=== PATIENT | female | born 1990 | race Caucasian/White ===

== ENCOUNTER 2023-03-13 12:51 | Emergency (ER) | payer MEDICAID, SELFPAY ==
[2023-03-13 13:51] VITALS: BMI 20.7
[2023-03-13 13:55] VITALS: BP 136/60; PULSE 91; RESP 18; TEMP 36.9; O2SAT 98
[2023-03-13 14:48] LABS: Basophils # 0.1 10^3/uL (0.0-0.1); Basophils % 0.6 %; Eosinophils % 0.5 %; Lymphocytes # 2.1 10^3/uL (0.8-4.8); Lymphocytes % 24.3 %; Mean Corpuscular HGB Conc 28.7 g/dL (30-55); Mean Corpuscular Hemoglobin 18.7 pg (27-33); Mean Corpuscular Volume 65.1 fl (85-98); Mean Platelet Volume 10.1 fL (7.4-10.4); Monocytes # 0.5 10^3/uL (0.2-0.9); Monocytes % 5.3 %; Neutrophils # 6.08 10^3/uL (1.8-7.7); Neutrophils % 69.1 %; Nucleated Red Blood Cells % 0 %; Platelet Count 432 10^3/cmm (157-399); Red Blood Count 4.76 10^6/uL (3.85-5.65); Red Cell Distribution Width 19.2 % (12.1-15.1)
--- NOTE | 2023-03-13 15:14 | W.ED.FEMALGU ---
HPI - Female Genitourinary General: Chief complaint: Urogenital-Female Stated complaint: right side possibly 6 weeks preg Time Seen by Provider: 03/13/23 15:11 Source: patient Mode of arrival: ambulatory History of Present Illness: 32-year-old female presents emergency room complaining of vaginal bleeding and pelvic discomfort. Complains of pelvic pain on the right. She has a history of previous C-sections. She states several days ago she had positive home test. No fevers or chills no dysuria urgency or frequency. MD elicited complaint: vaginal bleeding and pelvic pain Onset (ago): day(s) (2) Severity: mild Quality of pain: cramping Consistency: intermittent Vaginal bleeding: scant Exacerbating factors: none Relieving factors: none Associated symptoms: Deny abdominal pain, short of breath, fevers/chills, headache(s), nausea, rash, seizures, syncope, vaginal bleeding, vaginal discharge or weakness Date of Last Menstrual Period: 02/04/23 Review of Systems Const: Denies: fever(s), chills, body aches, change in appetite, fatigue or malaise ENMT: Denies: throat pain, ear or mastoid pain, nasal discharge or nasal congestion Card: Denies: syncope Resp: Denies: dyspnea, productive cough or non-productive cough GI: Denies: abdominal pain or nausea : Denies: vaginal discharge Skin/Breast: Denies: rash or pruritus Neuro: Denies: headache(s) [facility] ED Female Reproductive History: Date of last menstrual period: 02/04/23 Physical Exam Const: GENERAL APPEARANCE: cooperative and comfortable ORIENTATION/CONSCIOUSNESS: Yes awake, Yes oriented to person, Yes oriented to place and Yes oriented to time HENMT: COMMON NORMALS: normocephalic, atraumatic and hearing grossly normal bilaterally HEAD & SCALP: normocephalic and atraumatic Resp: COMMON NORMALS: normal respiratory effort, No retractions, No use of accessory muscles and clear to auscultation bilaterally AUSCULTATION: clear to auscultation bilaterally Cardio: COMMON NORMALS: regular rate, regular rhythm and No murmurs present (Cardio) RATE: regular rate RHYTHM: regular rhythm GI: COMMON NORMALS: Soft to palpation and No hepatosplenomegaly present AUSCULTATION: Yes normoactive bowel sounds PALPATION: Yes Soft to palpation, No Tenderness to palpation present (GI), No Guarding due to palpation present (GI) and Yes No hepatosplenomegaly present : SPECULUM EXAM - VAGINA: No vaginal bleeding OB/EXTERNAL & SPECULUM: No vaginal bleeding Extremity: COMMON NORMALS: normal to inspection, capillary refill normal, no clubbing, cyanosis or edema, no calf tenderness and no pedal edema Neuro: SENSORIUM/ORIENTATION: Yes oriented to person, Yes oriented to place and Yes oriented to time Skin: COMMON NORMALS: no rashes or lesions noted GENERAL SKIN EXAM: no rashes or lesions noted Course Vital Signs: Vital signs: Vital Signs Temperature 98.4 F 03/13/23 13:55 Pulse Rate 83 03/13/23 15:25 Respiratory Rate 18 03/13/23 13:55 Blood Pressure 139/76 03/13/23 15:25 Pulse Oximetry 100 03/13/23 15:25 Oxygen Delivery Me thod Room Air 03/13/23 13:55 MDM - Female Medical Decision Making Labs and imaging reviewed. Beta-hCG is nearly 11,000 but unable to identify a pole or cardiac activity. There is a gestational sac and a yolk sac but no pole. No ectopic identified there is a corpus luteum cyst on the left ovary. Her discomfort is on the right. Her beta-hCG is disproportionately high for what we are seeing on the ultrasound but there is no evidence of ectopic or molar and there is evidence of intrauterine albeit much earlier than anticipated. Discussed these findings with Dr. Ramírez who is on-call. He recommends repeat beta-hCG in 72 hours. We will have the patient return on 03 16 in the area to the emergency room. Because it is a holiday there will be no office is open will have a repeat repeat beta-hCG here in the emergency room. I will be working at shift asked her to arrive sometime between 7 and 9 AM. Repeat beta-hCG and trend referral to OB as well. Medical Records I reviewed the patient's medical records. Lab Data I reviewed the patient's lab results. 03/13/23 14:24 03/13/23 14:24 Radiology Impressions Ultrasound 03/13/23 15:59 IMPRESSION: There is an intrauterine gestational sac with a yolk sac but no embryo or heartbeat detected at this time. Consider repeat ultrasound in 7-10 days to assess viability if clinically warranted. Laboratory Results WBC 8.80 10^3/uL (3.29-11.43) 03/13/23 14:24 RBC 4.76 10^6/uL (3.85-5.65) 03/13/23 14:24 Hgb 8.90 g/dL (11.27-16.99) L 03/13/23 14:24 Hct 31.0 % (36-47) L 03/13/23 14:24 MCV 65.1 fl (85-98) L 03/13/23 14:24 MCH 18.7 pg (27-33) L 03/13/23 14:24 MCHC 28.7 g/dL (30-55) L 03/13/23 14:24 RDW 19.2 % (12.1-15.1) H 03/13/23 14:24 Plt Count 432 10^3/cmm (157-399) H 03/13/23 14:24 MPV 10.1 fL (7.4-10.4) 03/13/23 14:24 Neut % (Auto) 69.1 % 03/13/23 14:24 Lymph % (Auto) 24.3 % 03/13/23 14:24 [place] % (Auto) 5.3 % 03/13/23 14:24 Eos % (Auto) 0.5 % 03/13/23 14:24 Baso % (Auto) 0.6 % 03/13/23 14:24 Neut # (Auto) 6.08 10^3/uL (1.8-7.7) 03/13/23 14:24 Lymph # (Auto) 2.1 10^3/uL (0.8-4.8) 03/13/23 14:24 [place] # (Auto) 0.5 10^3/uL (0.2-0.9) 03/13/23 14:24 Eos # (Auto) 0.0 10^3/uL (0.0-0.8) 03/13/23 14:24 Baso # (Auto) 0.1 10^3/uL (0.0-0.1) 03/13/23 14:24 Nucleated RBC % (auto) 0 % 03/13/23 14:24 Nucleated RBCs # 0.0 /100WBC 03/13/23 14:24 Sodium 136 mmol/L (136-145) 03/13/23 14:24 Potassium 3.9 mmol/L (3.5-5.1) 03/13/23 14:24 Chloride 102 mmol/L (98-107) 03/13/23 14:24 Carbon Dioxide 23 mmol/L (22-29) 03/13/23 14:24 Anion Gap 14.9 (5-19) 03/13/23 14:24 BUN 10 mg/dL (6-20) 03/13/23 14:24 Creatinine 0.6 mg/dL (0.5-0.9) 03/13/23 14:24 GFR Calculation 117.4 mL/min (90-130) 03/13/23 14:24 Glucose 108 mg/dL (65-115) 03/13/23 14:24 Calculated Osmolality 282 mOsm/kg (285-295) L 03/13/23 14:24 Calcium 9.2 mg/dL (8.5-10.5) 03/13/23 14:24 Total Bilirubin 0.3 mg/dL (0.15-1.2) 03/13/23 14:24 AST 15 U/L (0-32) 03/13/23 14:24 ALT 7 U/L (0-33) 03/13/23 14:24 Alkaline Phosphatase 58 U/L (35-105) 03/13/23 14:24 Total Protein 8.2 g/dL (6.6-8.7) 03/13/23 14:24 Albumin 4.6 g/dL (3.5-5.2) 03/13/23 14:24 Globulin 3.6 g/dL (1.3-4.6) 03/13/23 14:24 Ser , Semi-Qnt 70153.00 mIU/mL 03/13/23 14:24 Urine Color Yellow (Yellow) 03/13/23 15:50 Urine Appearance Clear (CLEAR) 03/13/23 15:50 Urine pH 5 (5-7) 03/13/23 15:50 Ur Specific [place] 1.015 (1.005-1.030) 03/13/23 15:50 Urine Protein Neg (Negative) 03/13/23 15:50 Urine Glucose (UA) Norm (Normal) 03/13/23 15:50 Urine Ketones Negative (Negative) 03/13/23 15:50 Urine Blood Neg (Negative) 03/13/23 15:50 Urine Nitrate Negative (Negative) 03/13/23 15:50 Urine Bilirubin Neg (Negative) 03/13/23 15:50 Urine Urobilinogen Norm mg/dL (Negative) 03/13/23 15:50 Ur Leukocyte Esterase Negative (Negative) 03/13/23 15:50 Discharge Plan Discharge Patient Disposition: Home Clinical Impression: Miscarriage, threatened, early Condition: Stable Prescriptions: No Action Tylenol Ex Str Rapid Release 500 mg Tablet 500 mg PO Q6H PRN (Reason: Pain) Discharge Orders: Discharge ED (Routine); Ordered 03/13/23 Ordered By: Charles Flowers Discharge Diet: Usual diet Discharge Activity: Increase activity as tolerated Patient Instructions: Opioid Safety, Pain Management Activity Restrictions/Additional Instructions: Recheck a beta-hCG in the emergency room Thursday. Coding Level of Care Code ED Pulmonology Technician for Jaya Arzate
[2023-03-13 15:25] VITALS: BP 139/76; PULSE 83; O2SAT 100
[2023-03-13 15:33] LABS: Alanine Aminotransferase 7 U/L (0-33); Albumin Level 4.6 g/dL (3.5-5.2); Alkaline Phosphatase 58 U/L (35-105); Anion Gap 14.9 (5-19); Aspartate Amino Transferase 15 U/L (0-32); Blood Urea Nitrogen 10 mg/dL (6-20); Calcium 9.2 mg/dL (8.5-10.5); Carbon Dioxide 23 mmol/L (22-29); Chloride 102 mmol/L (98-107); Globulin 3.6 g/dL (1.3-4.6); Glomerular Filtration Rate 117.4 mL/min (90-130); Glucose 108 mg/dL (65-115); Osmolality Calculated 282 mOsm/kg (285-295); Potassium 3.9 mmol/L (3.5-5.1); Sodium 136 mmol/L (136-145); Total Bilirubin 0.3 mg/dL (0.15-1.2); Total Protein 8.2 g/dL (6.6-8.7)
--- NOTE | 2023-03-13 15:59 | USR_ITS ---
PROCEDURE INFORMATION: Exam: US , Transvaginal Exam date and time: 03/13/2023 5:01 PM Clinical indication: complicated by abdominal or pelvic pain; Right lower quadrant; First trimester (<14 weeks 0 days); Gestational age or lmp: 5w6d; ; Prior surgery; Surgery date: 6+ months; Surgery type: History of c sections; Additional info: Confirm iup TECHNIQUE: Imaging protocol: Real-time transvaginal obstetrical ultrasound of the maternal pelvis with image documentation. Transvaginal imaging was used for better evaluation of the fetus, adnexa, and/or cervix. COMPARISON: No relevant prior studies available. FINDINGS: Gestation: There is a single intrauterine gestational sac. A yolk sac is visualized but no embryo or heartbeat is detected at this time. Gestational age based on mean sac diameter measurement is 5 weeks 6 days. Uterus and ovaries are unremarkable. There is a probable left ovarian corpus luteum cyst. Small amount of fluid is seen in the cervix. US/US OB <= 14 weeks fetus [id number] IMPRESSION: There is an intrauterine gestational sac with a yolk sac but no embryo or heartbeat detected at this time. Consider repeat ultrasound in 7-10 days to assess viability if clinically warranted.
[2023-03-13 16:05] LABS: Add Urine Microscopic? NO; Charge for UA Resulting for Rev
[2023-03-13 16:16] LABS: Bilirubin Urine Neg (Negative); Blood Urine Neg (Negative); Glucose Urine UA Norm (Normal); Ketones Urine Negative (Negative); Leukocyte Esterase Urine Negative (Negative); Nitrate Urine Negative (Negative); Protein Urine Neg (Negative); Specific Gravity, Urine 1.015 (1.005-1.030); Urine Appearance Clear (CLEAR); Urine Color Yellow (Yellow); Urobilinogen Urine Norm (Negative); pH Urine 5 (5-7)
--- NOTE | 2023-03-16 07:37 | DCPLANNER ---
Addendum entered by Maricruz Ochoa 03/17/23 14:22: Patient has a follow up appointment scheduled for Thursday, March 23, 2023 at 8:45 at [facility]. Original Note: manager global had message to schedule a follow up appointment for patient with DELIVERY DRIVER/SUPERVISOR. manager global sent patients information to the front office staff at [facility]. Patients information will be printed and reviewed. Clinic will call patient with appointment information.
== END 2023-03-13 18:34 | disposition home or self-care (01) ==
PROVIDERS: Emergency Medicine; Emergency Provider Family Medicine
DX: O20.0 Threatened abortion (principal); Z3A.01 Less than 8 weeks gestation of pregnancy
CPT/HCPCS: 36415; 76801; 80053; 81003; 84702; 85025; 99284

== ENCOUNTER 2023-03-16 09:08 | Emergency (ER) | payer MEDICAID, SELFPAY ==
[2023-03-16 09:23] VITALS: BP 115/77; PULSE 97; RESP 18; TEMP 36.8; O2SAT 97
--- NOTE | 2023-03-16 12:57 | W.ED.RECABL ---
HPI - Recheck/Abnormal Lab/Rx General: Chief Complaint: Recheck/Abnormal Lab/Rx Stated Complaint: abn labs/recheck Time Seen by Provider: 03/16/23 09:10 Source: patient Mode of arrival: ambulatory History of Present Illness: 32-year-old female returns emergency room I seen her last week she had a beta-hCG that was 10,000 but we are not able to identify a pole there are no masses in the uterus nothing that resemble molar no ectopic she is not having any further pain or and she is not having any bleeding. She returns today for repeat beta-hCG. At the time she was here we reviewed the case with on-call gynecology they recommended a 3-day repeat on her beta-hCG. MD complaint: abnormal lab Review of Systems : Denies: dysuria, urinary frequency, urinary urgency, vaginal bleeding or pelvic pain Physical Exam Const: COMMON NORMALS: no acute distress GENERAL APPEARANCE: cooperative and comfortable ORIENTATION/CONSCIOUSNESS: Yes awake, Yes oriented to person, Yes oriented to place and Yes oriented to time Neuro: SENSORIUM/ORIENTATION: Yes oriented to person, Yes oriented to place and Yes oriented to time Course Vital Signs: Vital signs: Vital Signs Temperature 98.2 F 03/16/23 09:23 Pulse Rate 97 03/16/23 09:23 Respiratory Rate 18 03/16/23 09:23 Blood Pressure 115/77 03/16/23 09:23 Pulse Oximetry 97 03/16/23 09:23 MDM - Recheck/Abnormal Lab/Rx Medical Decision Making Beta-hCG up to over 15,000 from over 10,000. She is not having any further symptoms follow-up doctor appointment as previously scheduled return if has further problems Medical Records I reviewed the patient's medical records. Lab Data I reviewed the patient's lab results. Laboratory Results Ser , Semi-Qnt 72221.00 mIU/mL 03/16/23 11:53 Discharge Plan Discharge Patient Disposition: Home Clinical Impression: Condition: Stable Prescriptions: No Action acetaminophen [Tylenol Ex Str Rapid Release] 500 mg Tablet 500 mg PO Q6H PRN (Reason: Pain) Discharge Orders: Discharge ED (Routine); Ordered 03/16/23 Ordered By: Charles Flowers Discharge Diet: Usual diet Discharge Activity: Resume usual activity Patient Instructions: Opioid Safety, Pain Management Activity Restrictions/Additional Instructions: Follow-up with Dr. Ramírez as scheduled Coding Level of Care Code ED Discharge Door Operator for Jaya Arzate
[2023-03-16 13:07] VITALS: PULSE 88; RESP 17; O2SAT 99
[2023-03-16 13:09] VITALS: PULSE 88; RESP 17; O2SAT 99
== END 2023-03-16 13:10 | disposition home or self-care (01) ==
PROVIDERS: Emergency Provider Family Medicine
DX: Z32.01 Encounter for pregnancy test, result positive (principal)
CPT/HCPCS: 84702; 99283

== ENCOUNTER → 2023-03-26 13:53 | Outpatient (BNVA) | payer MEDICAID, SELFPAY | PROVIDERS: Visit Provider Nurse Practitioner Women's Health | DX: D64.9 Anemia, unspecified (principal); Z34.90 Encounter for supervision of normal pregnancy, unspecified, unspecified trimester | CPT/HCPCS: 76817; 81025; 82607; 82728; 82746; 83550; 85025 ==

== ENCOUNTER → 2023-03-31 11:51 | Outpatient (BNVA) | payer MEDICAID, SELFPAY | PROVIDERS: Visit Provider Nurse Practitioner Women's Health | DX: Z34.91 Encounter for supervision of normal pregnancy, unspecified, first trimester (principal); Z3A.08 8 weeks gestation of pregnancy | CPT/HCPCS: 76817 ==

== ENCOUNTER → 2023-04-03 14:00 | Outpatient (BNVA) | payer MEDICAID, SELFPAY | PROVIDERS: Visit Provider Nurse Practitioner Women's Health | DX: D64.9 Anemia, unspecified; O09.899 Supervision of other high risk pregnancies, unspecified trimester; Z87.59 Personal history of other complications of pregnancy, childbirth and the puerperium; O34.219 Maternal care for unspecified type scar from previous cesarean delivery | CPT/HCPCS: 80307; 81000; 86592; 86762; 86803; 86850; 86900; 87086; 87340; 87806 ==

== ENCOUNTER 2023-04-04 09:20 | Emergency (ER) | payer MEDICAID, SELFPAY ==
[2023-04-04 09:27] VITALS: BP 132/59; PULSE 92; RESP 18; TEMP 36.4; O2SAT 93; BMI 21.2
--- NOTE | 2023-04-04 10:17 | PC.NURSE ---
unable to get heart tones. pt states mine analyst unsuccessful yesterday also.
--- NOTE | 2023-04-04 10:30 | ED_ITS ---
HPI - General: Chief complaint: Vaginal Bleeding Stated complaint: 8 weeks , vaginal bleeding Time Seen by Provider: 04/04/23 09:22 Source: patient Mode of arrival: ambulatory History of Present Illness: 32-year-old female approximately 8 weeks gestation presents emergency room with complaint of vaginal bleeding and some cramping. She denies dysuria urgency or frequency. Began suddenly this morning. She noticed some bleeding after she had urinated when she wiped. MD Complaint: vaginal bleeding Onset (ago): minute(s) Quality: Cramping Relieving factors: none Exacerbating factors: none Vaginal bleeding: light Associated symptoms: Deny abdominal pain, dyspareunia, dysuria, headache(s), malaise, nausea, rash, seizures, short of breath, syncope, vaginal bleeding, visual changes, vomiting or weakness Review of Systems Const: Denies: fever(s), chills or malaise ENMT: Denies: throat pain, ear or mastoid pain, nasal discharge or nasal congestion Card: Denies: syncope Resp: Denies: dyspnea, productive cough or non-productive cough GI: Denies: abdominal pain, nausea or vomiting : Reports: vaginal bleeding; Denies: dysuria, urinary frequency, urinary urgency or dyspareunia Skin/Breast: Denies: rash or pruritus Neuro: Denies: headache(s) PFSH ED PFSH: Medical History Chronic anemia History of gestational hypertension with her twin in 2010; developed at the end and required medication for 4 months . No pertinent past medical history neghx: htn,dm,thyroid,dvt/pe PCP: none Surgical History History of section 1)-2010-- emergent twins and gest HTN; [place] 2[place]2013- [place] 3[place]2016- repeat; [place] Family History Denies family history of Colon cancer Ovarian cancer Prostate cancer Diabetes Heart disease Hyperlipidemia Breast cancer Hypertension Uterine cancer Thyroid condition Stroke Physical Exam Const: GENERAL APPEARANCE: cooperative and comfortable ALLEN ENTATION/CONSCIOUSNESS: Yes awake, Yes oriented to person, Yes oriented to place and Yes oriented to time HENMT: COMMON NORMALS: normocephalic, atraumatic and hearing grossly normal bilaterally HEAD & SCALP: normocephalic and atraumatic Resp: COMMON NORMALS: normal respiratory effort, No retractions, No use of accessory muscles and clear to auscultation bilaterally AUSCULTATION: clear to auscultation bilaterally Cardio: COMMON NORMALS: regular rate, regular rhythm and No murmurs present (Cardio) RATE: regular rate RHYTHM: regular rhythm GI: COMMON NORMALS: Soft to palpation and No hepatosplenomegaly present AUSCULTATION: Yes normoactive bowel sounds PALPATION: Yes Soft to palpation, No Tenderness to palpation present (GI), No Guarding due to palpation present (GI) and Yes No hepatosplenomegaly present : SPECULUM EXAM - VAGINA: No vaginal bleeding OB/EXTERNAL & SPECULUM: No vaginal bleeding Extremity: COMMON NORMALS: normal to inspection, capillary refill normal, no clubbing, cyanosis or edema, no calf tenderness and no pedal edema Neuro: SENSORIUM/ORIENTATION: Yes oriented to person, Yes oriented to place and Yes oriented to time Skin: COMMON NORMALS: no rashes or lesions noted GENERAL SKIN EXAM: no rashes or lesions noted Course Vital Signs: Vital signs: Vital Signs Temperature 97.6 F 04/04/23 09:27 Pulse Rate 92 04/04/23 09:27 Respiratory Rate 18 04/04/23 09:27 Blood Pressure 132/59 04/04/23 09:27 Pulse Oximetry 93 04/04/23 09:27 Oxygen Delivery Me thod Room Air 04/04/23 09:27 MDM - OB/Uterine Contractions Medical Decision Making Patient has chronic anemia but it is somewhat improved. Beta-hCG has increased appropriately bedside ultrasound could identify some activity was difficult due to the limitations of the ultrasound were used at the bedside. Full ultrasound showed some fluid in the cervical canal with good heart t ones. Suspect this from a subchorionic hemorrhage she does not have a large residual hemorrhage but she does have the fluid in the cervix advised her she is likely have further cramping as well as some bleeding. Follow-up with her CUSTOMS AND BORDER PROTECTION INSPECTOR Medical Records I reviewed the patient's medical records. Lab Data I reviewed the patient's lab results. 04/04/23 10:17 Radiology Impressions Transvaginal US 04/04/23 10:49 IMPRESSION: 1. Live single intrauterine 1st trimester . 2. No identifiable subchorionic hemorrhage. 3. Small amount of fluid in the cervical canal. Laboratory Results WBC 6.40 10^3/uL (3.29-11.43) 04/04/23 10:17 RBC 4.65 10^6/uL (3.85-5.65) 04/04/23 10:17 Hgb 8.90 g/dL (11.27-16.99) L 04/04/23 10:17 Hct 31.2 % (36-47) L 04/04/23 10:17 MCV 67.1 fl (85-98) L 04/04/23 10:17 MCH 19.1 pg (27-33) L 04/04/23 10:17 MCHC 28.5 g/dL (30-55) L 04/04/23 10:17 RDW 20.7 % (12.1-15.1) H 04/04/23 10:17 Plt Count 357 10^3/cmm (157-399) 04/04/23 10:17 MPV 10.1 fL (7.4-10.4) 04/04/23 10:17 Neut % (Auto) 66.7 % 04/04/23 10:17 Lymph % (Auto) 25.5 % 04/04/23 10:17 [place] % (Auto) 6.1 % 04/04/23 10:17 Eos % (Auto) 0.9 % 04/04/23 10:17 Baso % (Auto) 0.6 % 04/04/23 10:17 Neut # (Auto) 4.27 10^3/uL (1.8-7.7) 04/04/23 10:17 Lymph # (Auto) 1.6 10^3/uL (0.8-4.8) 04/04/23 10:17 [place] # (Auto) 0.4 10^3/uL (0.2-0.9) 04/04/23 10:17 Eos # (Auto) 0.1 10^3/uL (0.0-0.8) 04/04/23 10:17 Baso # (Auto) 0.0 10^3/uL (0.0-0.1) 04/04/23 10:17 Nucleated RBC % (auto) 0 % 04/04/23 10:17 Nucleated RBCs # 0.0 /100WBC 04/04/23 10:17 Ser , Semi-Qnt 66886.00 mIU/mL 04/04/23 10:17 All radiology interpretation(s) finalized by discharge Discharge Plan Discharge Patient Disposition: Home Clinical Impression: Subchorionic bleed, Chronic anemia Condition: Stable Prescriptions: No Action ferrous sulfate 325 mg (65 mg iron) tablet 325 mg PO BID Qty: 60 3RF acetaminophen [Tylenol Ex Str Rapid Release] 500 mg Tablet 500 mg PO Q6H PRN (Reason: Pain) 28 mg iron- 800 mcg Tablet 1 tab PO DAILY Discharge Orders: Discharge ED (Routine); Ordered 04/04/23 Ordered By: Charles Flowers Referrals: Samson Ramírez MD [Primary Care Provider] - Discharge Diet: Usual diet Discharge Activity: Limit activity as instructed Patient Instructions: Subchorionic Hemorrhage (ED), Opioid Safety, Pain Management Coding Level of Care Code ED Garbage Man for Jaya Arzate
[2023-04-04 10:32] LABS: Basophils % 0.6 %; Eosinophils # 0.1 10^3/uL (0.0-0.8); Eosinophils % 0.9 %; Hematocrit 31.2 % (36-47); Lymphocytes # 1.6 10^3/uL (0.8-4.8); Lymphocytes % 25.5 %; Mean Corpuscular HGB Conc 28.5 g/dL (30-55); Mean Corpuscular Hemoglobin 19.1 pg (27-33); Mean Corpuscular Volume 67.1 fl (85-98); Mean Platelet Volume 10.1 fL (7.4-10.4); Monocytes # 0.4 10^3/uL (0.2-0.9); Monocytes % 6.1 %; Neutrophils # 4.27 10^3/uL (1.8-7.7); Neutrophils % 66.7 %; Nucleated Red Blood Cells % 0 %; Platelet Count 357 10^3/cmm (157-399); Red Blood Count 4.65 10^6/uL (3.85-5.65); Red Cell Distribution Width 20.7 % (12.1-15.1)
--- NOTE | 2023-04-04 10:49 | USR_ITS ---
PROCEDURE INFORMATION: Exam: US , Transvaginal Exam date and time: 04/04/2023 11:15 AM Age: 32 years old Clinical indication: Lmp or gestational age (in weeks): 8w4d; Antepartum complications; Bleeding; ; Additional info: Establish hrt tones, ? subchorionic LABS AND CLINICAL REPORTS: Last menstrual period start date: 02/03/2023 Gestational age (Established): 8 w 4 d Estimated due date (Established): 11/10/2023 TECHNIQUE: Imaging protocol: Real-time transvaginal obstetrical ultrasound of the maternal pelvis with image documentation. Transvaginal imaging was used for better evaluation of the fetus, adnexa, and/or cervix. COMPARISON: OB transvaginal [id number] 03/31/2023 12:02 PM FINDINGS: Gestation: There is a single live intrauterine . Yolk sac measures 3.4 mm. No identifiable subchorionic hemorrhage. heart rate: 180 bpm BIOMETRY: Gestational age (AUA): 8 w 4 d estimated due date 11/10/2023 [place]-Rump length (CRL): 19.7 mm. EGA (CRL) is 8 w 4 d MATERNAL: Uterus: Unremarkable. Cervix: Cervical length measures 4.39 cm. Small amount of fluid in the cervical canal. Right ovary/adnexa: Unremarkable. Small cyst possibly representing a corpus luteum cyst. US/ OB transvaginal [id number] IMPRESSION: 1. Live single intrauterine 1st trimester . 2. No identifiable subchorionic hemorrhage. 3. Small amount of fluid in the cervical canal.
== END 2023-04-04 12:20 | disposition home or self-care (01) ==
PROVIDERS: Emergency Provider Family Medicine; PCP Obstetrics & Gynecology
DX: O20.8 Other hemorrhage in early pregnancy (principal); O99.011 Anemia complicating pregnancy, first trimester; D64.89 Other specified anemias; Z3A.08 8 weeks gestation of pregnancy
CPT/HCPCS: 36415; 76817; 84702; 85025; 99284

== ENCOUNTER → 2023-04-07 14:05 | Outpatient (BNVA) | payer MEDICAID, SELFPAY | PROVIDERS: PCP Obstetrics & Gynecology; Visit Provider Nurse Practitioner Women's Health | DX: O41.8X90 Other specified disorders of amniotic fluid and membranes, unspecified trimester, not applicable or unspecified; O46.8X9 Other antepartum hemorrhage, unspecified trimester | CPT/HCPCS: 81000; 86850; 87491; 87591; 87624 ==

== ENCOUNTER → 2023-05-04 10:34 | Outpatient (BNVA) | payer MEDICAID, SELFPAY | PROVIDERS: Visit Provider Obstetrics & Gynecology | DX: O09.899 Supervision of other high risk pregnancies, unspecified trimester (principal) | CPT/HCPCS: 81000 ==

== ENCOUNTER → 2023-05-26 10:53 | Outpatient (BNVA) | payer MEDICAID, SELFPAY | PROVIDERS: Visit Provider Nurse Practitioner Women's Health | DX: O09.899 Supervision of other high risk pregnancies, unspecified trimester (principal); Z34.90 Encounter for supervision of normal pregnancy, unspecified, unspecified trimester; D64.9 Anemia, unspecified | CPT/HCPCS: 81000; 82105; 82728; 83550; 85025 ==

== ENCOUNTER → 2023-06-24 14:24 | Outpatient (BNVA) | payer MEDICAID, SELFPAY | PROVIDERS: Visit Provider Nurse Practitioner Women's Health | DX: O09.899 Supervision of other high risk pregnancies, unspecified trimester (principal); Z3A.20 20 weeks gestation of pregnancy | CPT/HCPCS: 76805 ==

== ENCOUNTER → 2023-07-23 12:15 | Outpatient (BNVA) | payer MEDICAID, SELFPAY | PROVIDERS: Visit Provider Nurse Practitioner Women's Health | DX: O09.899 Supervision of other high risk pregnancies, unspecified trimester (principal); Z87.59 Personal history of other complications of pregnancy, childbirth and the puerperium; O34.219 Maternal care for unspecified type scar from previous cesarean delivery; O26.892 Other specified pregnancy related conditions, second trimester; Z67.91 Unspecified blood type, Rh negative; Z30.2 Encounter for sterilization; O36.5920 Maternal care for other known or suspected poor fetal growth, second trimester, not applicable or unspecified; D64.9 Anemia, unspecified; O46.8X2 Other antepartum hemorrhage, second trimester; Z3A.24 24 weeks gestation of pregnancy | CPT/HCPCS: 81000; 82950 ==

== ENCOUNTER → 2023-08-20 10:58 | Outpatient (BNVA) | payer MEDICAID, SELFPAY | PROVIDERS: Visit Provider Obstetrics & Gynecology | DX: O09.899 Supervision of other high risk pregnancies, unspecified trimester (principal); O26.892 Other specified pregnancy related conditions, second trimester; Z67.91 Unspecified blood type, Rh negative; Z3A.28 28 weeks gestation of pregnancy | CPT/HCPCS: 81000; 85025; 86850 ==

== ENCOUNTER → 2023-09-03 11:26 | Outpatient (BNVA) | payer MEDICAID, SELFPAY | PROVIDERS: Visit Provider Obstetrics & Gynecology | DX: Z34.90 Encounter for supervision of normal pregnancy, unspecified, unspecified trimester (principal) | CPT/HCPCS: 76816; 80307; 81000 ==

== ENCOUNTER → 2023-10-01 07:57 | Outpatient (BNVA) | payer MEDICAID, SELFPAY | PROVIDERS: Visit Provider Nurse Practitioner Women's Health | DX: O09.899 Supervision of other high risk pregnancies, unspecified trimester (principal); Z3A.34 34 weeks gestation of pregnancy | CPT/HCPCS: 81000; 85025 ==

== ENCOUNTER → 2023-10-15 07:51 | Outpatient (BNVA) | payer MEDICAID, SELFPAY | PROVIDERS: Visit Provider Obstetrics & Gynecology | DX: O09.899 Supervision of other high risk pregnancies, unspecified trimester (principal); Z3A.36 36 weeks gestation of pregnancy | CPT/HCPCS: 81000; 87081 ==

== ENCOUNTER → 2023-10-22 08:31 | Outpatient (BNVA) | payer MEDICAID, SELFPAY | PROVIDERS: Visit Provider Obstetrics & Gynecology | DX: O09.899 Supervision of other high risk pregnancies, unspecified trimester (principal); O34.219 Maternal care for unspecified type scar from previous cesarean delivery; O26.892 Other specified pregnancy related conditions, second trimester; Z67.91 Unspecified blood type, Rh negative; Z30.2 Encounter for sterilization; O36.5920 Maternal care for other known or suspected poor fetal growth, second trimester, not applicable or unspecified; Z87.59 Personal history of other complications of pregnancy, childbirth and the puerperium; D64.9 Anemia, unspecified; Z3A.37 37 weeks gestation of pregnancy | CPT/HCPCS: 81000 ==

== ENCOUNTER → 2023-10-27 08:02 | Outpatient (BNVA) | payer MEDICAID, SELFPAY | PROVIDERS: Visit Provider Obstetrics & Gynecology | DX: O09.899 Supervision of other high risk pregnancies, unspecified trimester (principal); Z3A.39 39 weeks gestation of pregnancy | CPT/HCPCS: 76816 ==

== ENCOUNTER → 2023-10-29 08:08 | Outpatient (BNVA) | payer MEDICAID, SELFPAY | PROVIDERS: Visit Provider Obstetrics & Gynecology | DX: O09.899 Supervision of other high risk pregnancies, unspecified trimester (principal); O34.219 Maternal care for unspecified type scar from previous cesarean delivery; O26.892 Other specified pregnancy related conditions, second trimester; Z67.91 Unspecified blood type, Rh negative; Z30.2 Encounter for sterilization; O36.5920 Maternal care for other known or suspected poor fetal growth, second trimester, not applicable or unspecified; Z87.59 Personal history of other complications of pregnancy, childbirth and the puerperium; D64.9 Anemia, unspecified; Z3A.38 38 weeks gestation of pregnancy | CPT/HCPCS: 81000 ==

== ENCOUNTER 2023-11-01 22:13 | Inpatient (IN) | payer MEDICAID, SELFPAY ==
[2023-11-01 22:16] VITALS: BP 171/100; PULSE 114
[2023-11-01 22:21] VITALS: BP 169/84; PULSE 98
[2023-11-01 22:31] VITALS: BP 156/81; PULSE 93
[2023-11-01] MEDS: ceFAZolin 2,000 MG in sodium chloride 0.9% (plus) 50 ML 100 MG IV (22:49)
[2023-11-01 23:04] LABS: Basophils % 0.2 %; Eosinophils # 0.1 10^3/uL (0.0-0.8); Eosinophils % 0.5 %; Hematocrit 35.9 % (36-47); Lymphocytes # 2.1 10^3/uL (0.8-4.8); Lymphocytes % 21.3 %; Mean Corpuscular HGB Conc 32.3 g/dL (30-55); Mean Corpuscular Hemoglobin 27.3 pg (27-33); Mean Corpuscular Volume 84.5 fl (85-98); Mean Platelet Volume 10.6 fL (7.4-10.4); Monocytes # 0.9 10^3/uL (0.2-0.9); Monocytes % 8.7 %; Neutrophils % 69.1 %; Nucleated Red Blood Cells % 0 %; Platelet Count 217 10^3/cmm (157-399); Red Blood Count 4.25 10^6/uL (3.85-5.65); Red Cell Distribution Width 15.3 % (12.1-15.1); White Blood Count 9.85 10^3/uL (3.29-11.43)
[2023-11-01 23:16] VITALS: BMI 27.3
[2023-11-01 23:23] LABS: Alanine Aminotransferase 8 U/L (0-33); Albumin Level 3.3 g/dL (3.5-5.2); Alkaline Phosphatase 159 U/L (35-105); Anion Gap 13.8 (5-19); Aspartate Amino Transferase 16 U/L (0-32); Blood Urea Nitrogen 7 mg/dL (6-20); Calcium 8.7 mg/dL (8.5-10.5); Carbon Dioxide 22 mmol/L (22-29); Chloride 104 mmol/L (98-107); Creatinine Clr Calc Pharmacy 152.8241; Globulin 3.1 g/dL (1.3-4.6); Glomerular Filtration Rate 143.9 mL/min (90-130); Glucose 112 mg/dL (65-115); Osmolality Calculated 281 mOsm/kg (285-295); Potassium 3.8 mmol/L (3.5-5.1); Sodium 136 mmol/L (136-145); Total Bilirubin 0.3 mg/dL (0.15-1.2); Total Protein 6.4 g/dL (6.6-8.7); Uric Acid 3.2 mg/dL (2.4-5.7)
--- NOTE | 2023-11-01 23:30 | ANES.PAUD2 ---
Pre-Anesthetic Update Pre-Anesthetic Assessment: Date of Surgery/Procedure: 11/01/23 Proposed Procedure: and b/l tubal Any changes to Pre-Anesthetic Assessment?: No Labs Last 48hrs: Short CBC 11/01/23 Range/Units 22:40 WBC 9.85 (3.29-11.43) 10^ 3/uL Hgb 11.60 (11.27-16.99) g/ dL Hct 35.9 L (36-47) % MCV 84.5 L (85-98) fl Plt Count 217 (157-399) 10^3/c mm Neut % (Auto) 69.1 % Neut # (Auto) 6.80 (1.8-7.7) 10^3/u L BMP 11/01/23 22:40 Sodium 136 Potassium 3.8 Chloride 104 Carbon Dioxide 22 BUN 7 Creatinine 0.5 Glucose 112 Calcium 8.7 Liver Function 11/01/23 Range/Units 22:40 Total Bilirubin 0.3 (0.15-1.2) mg/dL AST 16 (0-32) U/L ALT 8 (0-33) U/L Alkaline Phosphata se 159 H (35-105) U/L Albumin 3.3 L (3.5-5.2) g/dL Blood Bank 11/01/23 22:40 Blood Type A Negative Rho(D) Type Rh negative Vitals: Pulse Rate 93 11/01/23 22:31 Blood Pressure 156/81 11/01/23 22:31 Exam: Pre-Anes Outpt Exam: alert, oriented x 3, clear to auscultation bilaterally and regular rate & rhythm Cardiac Studies: No Data to Display
[2023-11-02] VITALS (85 sets, daily range): BP systolic 116–152; BP diastolic 57–91; PULSE 76–116; RESP 16; TEMP 35.9–36.9; O2SAT 96–100
--- NOTE | 2023-11-02 00:31 | PM.OPHPUD ---
Labor & Delivery H&P Update Date of Procedure: November 02, 2023 Date H&P Performed: 10/29/23 H&P update information: I have reviewed H&P completed within last 30 days, I have examined patient prior to procedure and Changes to prior documentation as noted here (Premature rupture of membranes) Admission Diagnosis:
--- NOTE | 2023-11-02 00:31 | PM.OP ---
Operative Report Date of procedure: November 02, 2023 Pre-op diagnosis: Term Previous delivery Desires sterilization Premature rupture of membranes Post-op diagnosis: same Procedure done: Repeat low-transverse delivery Bilateral salpingectomy Specimens removed/disposition: Placenta Left and right fallopian tubes Surgeon: Samson Ramírez MD Estimated blood loss (mL): 500 IV fluids (mL): 1,500 Complications: None Findings: After delivery of the infant placenta was noted to have what he appears to be Fetus papyraceous Procedure: After assuring informed consent, the patient was taken to the operating room and anesthesia was initiated. She was placed in the dorsal supine position with a left lateral tilt. The abdomen was prepped and draped in the usual sterile manner. A time-out procedure was performed. Preop antibiotics was administered. A Pfannenstiel skin incision was made with the scalpel and carried through to the underlying layer of fascia with the Bovie. The fascia was nicked in the midline and the incision extended laterally with the Che scissors. The superior aspect of the fascial incision was then grasped with Fer clamps and elevated and the underlying rectus muscle dissected off bluntly and sharp with che scissors dense adhesions. Attention was then turned to the inferior aspect of the incision which, in similar fashion, was grasped and tented up with Fer clamps and the rectus muscle dissected bluntly. The rectus muscles were then in the midline and the peritoneum identified, tented up and entered sharply with Metzenbaum scissors. The peritoneal incision was then extended superiorly and inferiorly with good visualization of the bladder. The Octavio O retractor was then inserted and the vesicouterine peritoneum identified, grasped with pickups and entered sharply with Metzenbaum scissors. This incision was then extended laterally and the bladder flap created digitally. The uterus incised in a low transverse fashion with the scalpel. The uterine incision was then extended with the bandage scissors. The was then delivered in the cephalic presentation atraumatically []. The nose and the mouth were suctioned with bulb and the cord clamped and cut. The cord was normal and had three vessels. Amniotic fluid was with meconium stain. The placenta was then removed manually. The placenta have what it appears to be a papyraceous twin. The placenta was sent to pathology. The uterus exteriorized and cleared of all clots and debris. The uterine incision was repaired with 0 Vicryl in a running-locked fashion. A second layer of the same suture was used to obtain excellent hemostasis. The gutters were cleared of all clots. The left fallopian tube was identified and grasped with a Nutrioso clamp. The tube was then followed out to the fimbria. At the avascular section of the fallopian tube was grasped with a Voyant fusion clamp and serially clamp sealed and cut the tube and transected at the cornua. The specimen was sent to pathology. Excellent hemostasis was noted. The same procedure was performed on the opposite fallopian tube. The uterus was then returned to the abdomen. The rectus muscles were approximated with 3-0 chromic gut. The ON-Q pain management system placed. The fascia was reapproximated with 0 Vicryl in an interrupted running fashion. The skin was closed with Insorb?s subcuticular absorbable nacho. The patient tolerated the procedure well. The sponge, lap and needle counts were correct times three.
[2023-11-02 03:20] LABS: Add Urine Microscopic? NO; Charge for UA Resulting for Rev
[2023-11-02 03:22] LABS: Bilirubin Urine Neg (Negative); Blood Urine Neg (Negative); Glucose Urine UA Norm (Normal); Ketones Urine Negative (Negative); Leukocyte Esterase Urine Negative (Negative); Nitrate Urine Negative (Negative); Protein Urine Neg (Negative); Specific Gravity, Urine 1.005 (1.005-1.030); Urine Appearance Clear (CLEAR); Urine Color Yellow (Yellow); Urobilinogen Urine Neg (Negative); pH Urine 6 (5-7)
[2023-11-02 03:46] LABS: UPRO/UCREAT Ratio 0.26 mg/mg CR; Urine Creatinine 54 mg/dL (28-217); Urine Protein Random 14 mg/dL
[2023-11-02] MEDS: ketorolac 30 mg/mL INJ IVP ×3 (06:42→19:06)
[2023-11-02] MEDS: simethicone 80 mg Chew PO ×2 (13:13→16:53)
[2023-11-02] MEDS: dextrose 5%-lactated ringers 1,000 ML 999 ML IV (13:36)
--- NOTE | 2023-11-02 14:55 | ANE.PACU2 ---
Inpatient post-anesthesia follow up: Airway intact: Yes Vital signs: Temperature 97.6 F Pulse Rate 83 Respiratory Rate 16 Blood Pressure 143/72 Pulse Oximetry 100 Oxygen Delivery Me thod Room Air Oxygen Flow Rate Fraction of Inspir ed Oxygen Hydration adequate: Yes Nausea and vomiting: Yes Pain level: 1 Mental status: Baseline
[2023-11-02 15:50] LABS: Hematocrit 31.8 % (36-47); Mean Corpuscular HGB Conc 32.7 g/dL (30-55); Mean Corpuscular Hemoglobin 27.8 pg (27-33); Platelet Count 213 10^3/cmm (157-399); Red Blood Count 3.74 10^6/uL (3.85-5.65); Red Cell Distribution Width 15.3 % (12.1-15.1); White Blood Count 12.62 10^3/uL (3.29-11.43)
[2023-11-02] MEDS: docusate sodium 100 mg Capsule PO (20:57)
[2023-11-03] MEDS: simethicone 80 mg Chew PO (01:41)
[2023-11-03 06:19] VITALS: BP 122/82; PULSE 93; RESP 16; TEMP 36.8; O2SAT 97
[2023-11-03] MEDS: PRENATAL VIT NO.130/IRON/FOLIC 1 EACH TABLET PO (09:01)
[2023-11-03] MEDS: docusate sodium 100 mg Capsule PO ×2 (09:01→20:54)
[2023-11-03] MEDS: ibuprofen 800 mg tablet PO ×3 (09:01→20:53)
[2023-11-03 10:00] VITALS: BP 117/77; PULSE 90; TEMP 36.8
[2023-11-03 16:21] VITALS: BP 120/78; PULSE 87; TEMP 36.7
--- NOTE | 2023-11-03 16:57 | P.PN_ITS ---
Subjective 2 Subjective: Mrs. Blackwood 33-year-old female status post delivery postoperative day 1. Refers little pain. Vitals/I&O/Wt Last Vital Signs Temp 98.2 F 11/04/23 05:07 Pulse 83 11/04/23 05:07 Resp 16 11/04/23 05:07 BP 124/80 11/04/23 05:07 Pulse Ox 96 11/04/23 05:07 O2 Del Method Room Air 11/04/23 05:07 Physical Exam 2 Narrative: GA: Alert and oriented ?3. HEENT: WNL. Breasts: engorged Nipples - skin intact Heart: Regular rate and rhythm. Lungs: Clear to auscultation bilaterally. Abdomen: Bowel sounds present, nontender, minimal tenderness, incision clean and dry, no redness, pain or edema. Uterine fundus below umbilicus. No Fundal OUTBOUND SALES CONSULTANT: Normal lochia bleeding. Extremities: No edema, no cyanosis, no calves pain. Urinary Catheter Management: Guallpa Latex: Cath Placed During This Visit: yes, but has since been removed by the nurse Reason for Continuing Indwelling Catheter: Decision to DC Catheter Urinary Catheter Date of Insertion: 11/01/23 Urinary Catheter Time of Insertion: 23:10 Date Urinary Catheter Removed: 11/02/23 Time Urinary Catheter Discontinued: 08:10 Data 11/02/23 13:09 11/01/23 22:40 A&P Assessment and plan (1) Term delivered: Mrs. Jaison Ordonez-year-old female status post repeat delivery postoperative day 1. She is afebrile and hemodynamically stable. Patient is coverage to ambulate. First now passing flatus. Voiding without difficulty. (2) Status post delivery: Plan Continue postop observation. Attestations 2 Medical Necessity Statement*: In my professional opinion per admitting diagnosis Coding Level of Care Code Acute Code for Chg Fwd Diagnoses Term delivered O80 Status post delivery Z98.891
[2023-11-03 20:56] VITALS: BP 121/73; PULSE 95; RESP 16; TEMP 36.6; TEMP 36.7; O2SAT 97
[2023-11-04 05:07] VITALS: BP 124/80; PULSE 83; RESP 16; TEMP 36.8; O2SAT 96
--- NOTE | 2023-11-04 08:03 | PM.OBGYDC ---
Discharge Providers RIB MATCHER AND FITTER Date of Admission: 11/01/23 22:13 Date of Discharge: 11/04/23 Attending Provider at Admission: Samson Ramírez MD Attending Provider at Discharge: Samson Ramírez MD Diagnoses at Discharge Discharge Diagnosis (1) Term delivered: Status: Acute (2) Status post delivery: Status: Acute Reason for Visit Reason for Visit: POSSIBLE SROM Hospital Course Hospital Course Ms. Blackwood is a 33 year old established patient with LMP of 01/24/2023, JOHN 11/06/2022 based on 7 week sonogram, placing her at 39-2/7 weeks. Came to labor and delivery due to premature rupture of membranes and was admitted for repeat delivery. She also had signed a consent for permanent sterilization at the clinic. Repeat delivery and bilateral salpingo-oophorectomy were performed without complication. Postoperative the observation was uneventful. She is afebrile hemodynamically stable postoperative day 2. Tolerating diet well. Ambulating without difficulty. Information Peripartum Data: Infant Delivery Method: Physical Exam Narrative: GA: Alert and oriented ?3. HEENT: WNL. Breasts: engorged Nipples - skin intact Heart: Regular rate and rhythm. Lungs: Clear to auscultation bilaterally. Abdomen: Bowel sounds present, nontender, minimal tenderness, incision clean and dry, no redness, pain or edema. Uterine fundus below umbilicus. No Fundal POWER GRADER OPERATOR: Normal lochia bleeding. Extremities: No edema, no cyanosis, no calves pain. Urinary Catheter Management: Guallpa Latex: Cath Placed During This Visit: yes, but has since been removed by the nurse Reason for Continuing Indwelling Catheter: Decision to DC Catheter Urinary Catheter Date of Insertion: 11/01/23 Urinary Catheter Time of Insertion: 23:10 Date Urinary Catheter Removed: 11/02/23 Time Urinary Catheter Discontinued: 08:10 History History History 4 Term 3 0 Miscarriages/Ectopic 0 Living Children 4 Discharge Data Studies Completed and Pending Pending at discharge Category Date Time Status Pathology: Surgical [PTH] Stat Pth 11/02/23 08:55 Received Laboratory Results WBC 12.62 10^3/uL (3.29-11.43) H 11/02/23 13:09 RBC 3.74 10^6/uL (3.85-5.65) L 11/02/23 13:09 Hgb 10.40 g/dL (11.27-16.99) L 11/02/23 13:09 Hct 31.8 % (36-47) L 11/02/23 13:09 MCV 85.0 fl (85-98) 11/02/23 13:09 MCH 27.8 pg (27-33) 11/02/23 13:09 MCHC 32.7 g/dL (30-55) 11/02/23 13:09 RDW 15.3 % (12.1-15.1) H 11/02/23 13:09 Plt Count 213 10^3/cmm (157-399) 11/02/23 13:09 MPV 11.0 fL (7.4-10.4) H 11/02/23 13:09 Neut % (Auto) 69.1 % 11/01/23 22:40 Lymph % (Auto) 21.3 % 11/01/23 22:40 [place] % (Auto) 8.7 % 11/01/23 22:40 Eos % (Auto) 0.5 % 11/01/23 22:40 Baso % (Auto) 0.2 % 11/01/23 22:40 Neut # (Auto) 6.80 10^3/uL (1.8-7.7) 11/01/23 22:40 Lymph # (Auto) 2.1 10^3/uL (0.8-4.8) 11/01/23 22:40 [place] # (Auto) 0.9 10^3/uL (0.2-0.9) 11/01/23 22:40 Eos # (Auto) 0.1 10^3/uL (0.0-0.8) 11/01/23 22:40 Baso # (Auto) 0.0 10^3/uL (0.0-0.1) 11/01/23 22:40 Nucleated RBC % (auto) 0 % 11/01/23 22:40 Nucleated RBCs # 0.0 /100WBC 11/01/23 22:40 Sodium 136 mmol/L (136-145) 11/01/23 22:40 Potassium 3.8 mmol/L (3.5-5.1) 11/01/23 22:40 Chloride 104 mmol/L (98-107) 11/01/23 22:40 Carbon Dioxide 22 mmol/L (22-29) 11/01/23 22:40 Anion Gap 13.8 (5-19) 11/01/23 22:40 BUN 7 mg/dL (6-20) 11/01/23 22:40 Creatinine 0.5 mg/dL (0.5-0.9) 11/01/23 22:40 GFR Calculation 143.9 mL/min (90-130) H 11/01/23 22:40 Glucose 112 mg/dL (65-115) 11/01/23 22:40 Calculated Osmolality 281 mOsm/kg (285-295) L 11/01/23 22:40 Uric Acid 3.2 mg/dL (2.4-5.7) 11/01/23 22:40 Calcium 8.7 mg/dL (8.5-10.5) 11/01/23 22:40 Total Bilirubin 0.3 mg/dL (0.15-1.2) 11/01/23 22:40 AST 16 U/L (0-32) 11/01/23 22:40 ALT 8 U/L (0-33) 11/01/23 22:40 Alkaline Phosphatase 159 U/L (35-105) H 11/01/23 22:40 Total Protein 6.4 g/dL (6.6-8.7) L 11/01/23 22:40 Albumin 3.3 g/dL (3.5-5.2) L 11/01/23 22:40 Globulin 3.1 g/dL (1.3-4.6) 11/01/23 22:40 Urine Color Yellow (Yellow) 11/01/23 23:15 Urine Appearance Clear (CLEAR) 11/01/23 23:15 Urine pH 6 (5-7) 11/01/23 23:15 Ur Specific [place] 1.005 (1.005-1.030) 11/01/23 23:15 Urine Protein Neg (Negative) 11/01/23 23:15 Urine Glucose (UA) Norm (Normal) 11/01/23 23:15 Urine Ketones Negative (Negative) 11/01/23 23:15 Urine Blood Neg (Negative) 11/01/23 23:15 Urine Nitrate Negative (Negative) 11/01/23 23:15 Urine Bilirubin Neg (Negative) 11/01/23 23:15 Urine Urobilinogen Neg mg/dL (Negative) 11/01/23 23:15 Ur Leukocyte Esterase Negative (Negative) 11/01/23 23:15 U Random Total Protein 14 mg/dL 11/01/23 23:15 Urine Creatinine 54 mg/dL (28-217) 11/01/23 23:15 Protein/Creatinin Ratio 0.26 mg/mg CR 11/01/23 23:15 Blood Type A Negative 11/01/23 22:40 Rho(D) Type Rh negative 11/01/23 22:40 Antibody Screen Negative 11/01/23 22:40 Screen Negative (Negative) 11/02/23 13:09 Vitals Last Vital Signs Temp 98.2 F 11/04/23 05:07 Pulse 83 11/04/23 05:07 Resp 16 11/04/23 05:07 BP 124/80 11/04/23 05:07 Pulse Ox 96 11/04/23 05:07 O2 Del Method Room Air 11/04/23 05:07 Results Labs OB ([facility]): Obstetrics US 10/27/23 Blood Type A Negative 11/01/23 Antibody Screen Negative 11/01/23 Hct 31.8 % (36-47) L 11/02/23 Hgb 10.40 g/dL (11.27-16.99) L 11/02/23 Rho(D) Type Rh negative 11/01/23 Plt Count 213 10^3/cmm (157-399) 11/02/23 Hep Bs Antigen Non-reactive (Nonreactive) 04/03/23 Hepatitis C Antibody Non-reactive (Nonreactive) 04/03/23 Rubella IgG Antibody 21.1 IU/mL (0.0-10.0) H 04/03/23 RPR Nonreactive (Nonreactive) 04/03/23 HIV 1&2 Ab & HIV 1 Ag Non-reactive (Non-Reactiv) 04/03/23 C.trachomatis RNA (TMA) Not detected (NOT DETECTED) 04/07/23 N.gonorrhoeae RNA (TMA) Not detected (NOT DETECTED) 04/07/23 T. vaginalis Amp RNA Not detected (NOT DETECTED) 04/07/23 Chlamydia/GC Comment See note 04/07/23 Cystic Fibrosis Screen Negative 05/04/23 Gest Glucose Tolerance 135 mg/dL (70-139) 07/23/23 Uric Acid 3.2 mg/dL (2.4-5.7) 11/01/23 Ser , Semi-Qnt 76667.00 mIU/mL 04/04/23 HCG, Qual Positive (Negative) H 03/26/23 Urine Opiates Screen Negative ng/mL (Negative) 09/03/23 Ur Barbiturates Screen Negative ng/mL (Negative) 09/03/23 Ur Phencyclidine Scrn Negative ng/mL (Negative) 09/03/23 Ur Amphetamines Screen Negative ng/mL (Negative) 09/03/23 U Benzodiazepines Scrn Negative ng/mL (Negative) 09/03/23 Urine Cocaine Screen Negative ng/mL (Negative) 09/03/23 U Marijuana (THC) Screen Negative ng/mL (Negative) 09/03/23 Micro Urine Specimen 04/03/23 Pap Smear Interpret See note 04/07/23 Discharge Plan Discharge Patient Disposition: Home Condition: Stable Prescriptions: New ibuprofen 800 mg tablet 800 mg PO TID PRN (Reason: pain) Qty: 60 0RF hydrocodone-acetaminophen 5-325 mg tablet 1 tab PO Q4H PRN (Reason: pain) Qty: 30 0RF Iron (ferrous sulfate) 325 mg (65 mg iron) tablet 325 mg PO BID Qty: 60 0RF Colace 100 mg capsule 100 mg PO BID Qty: 60 0RF acetaminophen 325 mg capsule 325 mg PO Q4H PRN (Reason: fever or pain) Qty: 60 0RF Discharge Orders: Discharge Order (Routine); Ordered 11/04/23 Ordered By: Samson Ramírez Referrals: Samson Ramírez MD [Physician] - 2 weeks Discharge Diet: Usual diet Discharge Activity: Limit activity as instructed Patient Instructions: Caring for Your Baby (GEN), Bleeding (GEN), Vaginal Delivery (GEN), Your 's Appearance (GEN), Opioid Safety Activity Restrictions/Additional Instructions: 1. Please call [facility] on next working day to make your post-operative appointment in 2 weeks. 2. Please stay home until you come back to the clinic on first post-hospatilization check up. 3. Please follow instructions on your medications CAREFULLY. 4. If you have abdominal incision, do not cover it unless dressing is necessary because of drainage. OK to shower, but avoid bath. Leave steri-strips until they fall off. If they are still on one week after surgery, you may remove them. 5. If you had vaginal surgery or vaginal repair, Dr. Ramírez may instruct you to take SITZ bath. 6. Yellow, blood tinged odorous vaginal discharge is usually normal after hysterectomy or vaginal surgeries. 7. No SEXUAL INTERCOURSE, tampons, or douches until you are completely released from the post-operative care. 8. Avoid constipation by eating right and maybe using some Metamucil or Milk of Magnesia. 9. All prescription refills are given during the working hours. Please do no wait till it runs out. Call the clinic at [phone] before your medication runs out. The clinic will get in touch with your doctor to prescribe medications if necessary. 10. Please remain within 40 mile radius from our hospital because emergencies do happen now and then during the post-operative period. 11. If you have stairs at home, take one step at a time slowly and minimize the number of trips. It helps to stay in one floor for the next few days. No lifting except what you can lift by one hand until you are released from the post-operative care. 12. Driving is discouraged until you are well healed. It may be 3-4 weeks before you feel strong enough to drive. You should be able to turn and look through the rear window without pain and you should be able to push the brake pedal very hard without pain before you drive. No fast rules, but SAFETY should be your primary concern. DO NOT drive if you are on sedating medications such as narcotics. 13. Call the clinic (during working hours) to make urgent appointment or go to the Emergency room, if any of the following occurs: i. Vaginal bleeding becomes heavy, more than a period. ii. Incision becomes red and sore, or drains pus. iii. Your TEMPERATURE is over 100.4F or you have chill. iv. IV site becomes red and swollen (a little ``knot?? is usually OK) v. Persistent nausea and vomiting vi. Persistent constipation or diarrhea vii. Rash or allergic reaction to medications. Discharge Attestations RIB MATCHER AND FITTER Time Spent in Discharge Care*: greater than 30 min Coding Level of Care Code Acute Code for Chg Fwd Diagnoses Term delivered O80 Status post delivery Z98.891
[2023-11-04] MEDS: ibuprofen 800 mg tablet PO (09:17)
[2023-11-04 09:20] VITALS: BP 127/83; PULSE 93; RESP 18; TEMP 36.4; O2SAT 98
== END 2023-11-04 09:25 | disposition home or self-care (01) | DRG 785 ==
LOC: OPOB 11-02 07:54 → OBGYN 11-02 07:54
PROVIDERS: Admitting Provider Obstetrics & Gynecology; Visit Provider Obstetrics & Gynecology
PROC: (CPT 59514; principal; 2023-11-01 22:45)
DX: O42.92 Full-term premature rupture of membranes, unspecified as to length of time between rupture and onset of labor (principal); O99.02 Anemia complicating childbirth; D64.9 Anemia, unspecified; Z3A.39 39 weeks gestation of pregnancy; Z37.0 Single live birth; O77.0 Labor and delivery complicated by meconium in amniotic fluid; O34.211 Maternal care for low transverse scar from previous cesarean delivery; N85.8 Other specified noninflammatory disorders of uterus; O26.893 Other specified pregnancy related conditions, third trimester; Z67.11 Type A blood, Rh negative
CPT/HCPCS: 36415; 51702; 59025; 59409; 80053; 81003; 82570; 83986; 84156; 84550; 85025; 85027; 85460; 86850; 86900; 88302; 88307; 90384; 90471; 96374; 96376; 99211; J0690; J1885; J2274; J3010; J3490; J7030; J7121